=== PATIENT | female | born 1980 | race Caucasian/White ===

== ENCOUNTER 2017-11-26 09:23 | Emergency (ER) | payer MEDICAID ==
[2017-11-26] MEDS ORDERED: KETOROLAC 30 MG/1 ML SDV IVP ONE (09:38)
[2017-11-26] MEDS ORDERED: CYCLOBENZAPRINE 10 MG TAB PO ONE (09:39)
--- NOTE | 2017-11-26 09:44 | EDPHY ---
H & P Stated Complaint: abdominal cramping, frequent bowel movements for 48 hours Time Seen by Provider: 11/26/17 09:39 HPI/ROS: HPI: This is a 37-year-old female who presents with Chief Complaint: abdominal cramping, frequent bowel movements for 48 hours Location: Lower abdomen Quality: Cramping and pain Duration: 2-3 weeks Signs and Symptoms: no fever,+n nausea, no vomiting, no hematemesis, no blood in stool, no abdominal bloating, no diarrhea, no back pain, no urinary symptoms , + vaginal discharge, + vaginal spotting, no indigestion, no chest pain, no shortness of breath Timing: Acute, intermittent episodes lasting approximately 20 min at a time Severity: 7/10 at its maximum pain Context: Patient recently moved to [facility] 3 weeks ago from [place] presents with complaints of lower abdominal cramping that occurs over the last 2 -3 weeks approximately 3-4 times per day lasting 20 min at a time and self- resolving. She is having frequent bowel movements 2-3 per day but denies blood in stool/hematemesis. No recent foreign travel/antibiotic use. Patient has a history of endometriosis with Merina IUD placed in [place] approximately 4 years ago. Her last pelvic exam was 3 years ago. She has noted a change in her vaginal discharge with a new recent sexual partner. She also complains of her urine having a foul order and dark in color. Denies dyspareunia. Patient reports that she is eating more but gluten free diet. Modifying Factors: None Comment: ROS: A comprehensive 10 system review of systems is otherwise negative aside from elements mentioned in the history of present illness. MEDICAL/SURGICAL/SOCIAL HISTORY: Medical history: Endometriosis Surgical history: Denies Social history: Unemployed. Current every day smoker. Family history noncontributory. CONSTITUTIONAL: Extremely well-appearing middle-aged white female, nontoxic in appearance, awake and alert, no obvious distress HEENT: Atraumatic and normocephalic, PERRL, EOMI. Nares patent; no rhinorrhea; no nasal mucosal edema. Tympanic membranes clear. Oropharynx clear, no exudate and moist pink mucosa. Airway patent. No lymphadenopathy. No meningismus. Cardiovascular: Normal S1/S2, regular rate, regular rhythm, without murmur rub or gallop. PULMONARY/CHEST: Symmetrical and nontender. Clear to auscultation bilaterally. Good air movement. No accessory muscle usage. ABDOMEN: Soft, mildly distended, moderate suprapubic lower abdominal reproducible tenderness with deep palpation, no rebound, no guarding, no peritoneal signs, no masses or organomegaly. No CVAT. Bowel sounds heard x4 quadrants. PELVIC: normal external genitalia, normal cervix, cervical os was closed, mild cervical motion tenderness, no adnexal mass, thin foul smelling discharge, no bleeding. The exam was performed with a integrity manager. EXTREMITIES: 2/2 pulses, strength 5/5, no deformities, no clubbing, no cyanosis or edema. NEUROLOGICAL: no focal neuro deficits. GCS 15. SKIN: Warm and dry, no erythema. no rash. Good capillary refill. Source: Patient Exam Limitations: No limitations - Personal History LMP (Females 10-55): IUD In Place - Medical/Surgical History Hx Asthma: No Hx Chronic Respiratory Disease: No Hx Diabetes: No Hx Cardiac Disease: No Hx Renal Disease: No Hx Cirrhosis: No Hx Alcoholism: No Hx HIV/AIDS: No Hx Splenectomy or Spleen Trauma: No Other PMH: endometriosis - Social History Smoking Status: Current every day smoker Constitutional: Initial Vital Signs Temperature (C) 37.1 C 11/26/17 09:25 Heart Rate 94 11/26/17 09:25 Respiratory Rate 18 11/26/17 09:25 Blood Pressure 124/89 H 11/26/17 09:25 O2 Sat (%) 97 11/26/17 09:25 O2 Delivery Mode Room Air Allergies/Adverse Reactions: quetiapine [From Seroquel] Allergy (Verified 11/26/17 09:25) Home Medications: Medication Instructions Recorded Doxycycline Hyclate 100 mg PO BID #28 tablet 11/26/17 Medical Decision Making - Diagnostics Imaging Results: Imaging Impressions Abdomen X-Ray 11/26/17 09:38 Impression: No evidence for obstruction. Pelvic/Renal Ultrasound 11/26/17 09:38 Impression: 1. Uterine leiomyomata. 2. The T-shaped intrauterine device is deployed at the fundal endometrium, although the left arm may slightly extend into the medial portion of the myometrium. 3. Small bilateral ovarian follicles, with no dominant solid or cystic mass or torsion. There is a small amount of free fluid in the right adnexal region. Findings were discussed with Gely Orona PA-C at 10:58, on 11/26/2017. . ED Course/Re-evaluation: Vital signs reviewed and stable upon arrival. No systemic signs. Labs, urinalysis, vaginal swabs, pelvic ultrasound, KUB ordered Patient given IV Toradol 30 mg and p.o. Flexeril 10 mg KUB my read via PACs shows nonobstructive bowel gas pattern with stool burden in the right lower quadrant and rectal vault. IUD in place. Urinalysis shows 1+ blood and WBCs 3-5. No clear signs of infection. 1040: Labs reviewed. No signs of leukocytosis/anemia/platelet dysfunction/KWASI/ elevated LFTs/electrolyte imbalance/pancreatitis/. 1100: Called by Dr. Terry that pelvic ultrasound shows fibroids intramural and submucosal, IUD in good position, tiny follicles but no signs of ovarian torsion. Good flow to both ovaries.. Pelvic exam performed and pelvic swabs obtained showing 2+ bacteria but no yeast , no trichomonas and no clue cells Will treat for early PID with mild cervical motion tenderness and vaginal discharge with IM Rocephin 250 mg and doxycycline 100 mg twice a day times 14 days. No indication to add Metronidazole at this time. unable to provide stool sample in the ER. Referral to [facility]. This patient was seen under the supervision of my secondary supervising physician. I evaluated care for this patient independently. Discussed this patient with Dr. Acevedo. Differential Diagnosis: Abdominal pain in a female including but not limited to ovarian cyst, pelvic inflammatory disease, ovarian torsion, urinary tract infection, and appendicitis. - Data Points Laboratory Results: Laboratory Results 11/26/17 09:45 11/26/17 09:45 11/26/17 11/26/17 11/26/17 11:00 11:00 09:45 WBC RBC Hgb Hct MCV MCH MCHC RDW Plt Count MPV Neut % (Auto) Lymph % (Auto) Newton % (Auto) Eos % (Auto) Baso % (Auto) Nucleat RBC Rel Count Absolute Neuts (auto) Absolute Lymphs (auto) Absolute Monos (auto) Absolute Eos (auto) Absolute Basos (auto) Absolute Nucleated RBC Immature Gran % Immature Gran # Sodium Potassium Chloride Carbon Dioxide Anion Gap BUN Creatinine Estimated GFR Glucose Calcium Total Bilirubin Conjugated Bilirubin Unconjugated Bilirubin AST ALT Alkaline Phosphatase Total Protein Albumin Lipase Beta HCG, Qual Urine Color YELLOW Urine Appearance HAZY Urine pH 6.0 (5.0-7.5) Ur Specific Flasher 1.019 (1.002-1.030) Urine Protein NEGATIVE (NEGATIVE) Urine Ketones NEGATIVE (NEGATIVE) Urine Blood 1+ H (NEGATIVE) Urine Nitrate NEGATIVE (NEGATIVE) Urine Bilirubin NEGATIVE (NEGATIVE) Urine Urobilinogen NEGATIVE EU EU (0.2-1.0) Ur Leukocyte Esterase NEGATIVE (NEGATIVE) Urine RBC 1-3 /hpf /hpf (0-3) Urine WBC 3-5 /hpf H /hpf (0-3) Ur Epithelial Cells TRACE /lpf /lpf (NONE-1+) Urine Mucus TRACE /lpf /lpf (NONE-1+) Urine Glucose NEGATIVE (NEGATIVE) Trichomonas (Wet Prep) NO YEAST Josette species DNA Pending C.trachomatis RNA (TMA) Pending Gardnerella DNA Probe Pending N.gonorrhoeae RNA (TMA) Pending Trichomonas DNA Probe Pending 11/26/17 11/26/17 11/26/17 09:45 09:45 09:45 WBC 8.34 10^3/uL 10^3/uL (3.80-9.50) RBC 5.34 10^6/uL H 10^6/uL (4.18-5.33) Hgb 16.9 g/dL H g/dL (12.6-16.3) Hct 50.0 % H % (38.0-47.0) MCV 93.6 fL fL (81.5-99.8) MCH 31.6 pg pg (27.9-34.1) MCHC 33.8 g/dL g/dL (32.4-36.7) RDW 11.8 % % (11.5-15.2) Plt Count 285 10^3/uL 10^3/uL (150-400) MPV 9.4 fL fL (8.7-11.7) Neut % (Auto) 70.2 % % (39.3-74.2) Lymph % (Auto) 22.8 % % (15.0-45.0) Newton % (Auto) 5.4 % % (4.5-13.0) Eos % (Auto) 0.7 % % (0.6-7.6) Baso % (Auto) 0.8 % % (0.3-1.7) Nucleat RBC Rel Count 0.0 % % (0.0-0.2) Absolute Neuts (auto) 5.85 10^3/uL 10^3/uL (1.70-6.50) Absolute Lymphs (auto) 1.90 10^3/uL 10^3/uL (1.00-3.00) Absolute Monos (auto) 0.45 10^3/uL 10^3/uL (0.30-0.80) Absolute Eos (auto) 0.06 10^3/uL 10^3/uL (0.03-0.40) Absolute Basos (auto) 0.07 10^3/uL 10^3/uL (0.02-0.10) Absolute Nucleated RBC 0.00 10^3/uL 10^3/uL (0-0.01) Immature Gran % 0.1 % % (0.0-1.1) Immature Gran # 0.01 10^3/uL 10^3/uL (0.00-0.10) Sodium 140 mEq/L mEq/L (135-145) Potassium 3.9 mEq/L mEq/L (3.3-5.0) Chloride 103 mEq/L mEq/L (97-110) Carbon Dioxide 28 mEq/l mEq/l (22-31) Anion Gap 9 mEq/L mEq/L (8-16) BUN 12 mg/dL mg/dL (7-23) Creatinine 0.7 mg/dL mg/dL (0.6-1.0) Estimated GFR > 60 Glucose 92 mg/dL mg/dL (70-100) Calcium 9.3 mg/dL mg/dL (8.5-10.4) Total Bilirubin 0.4 mg/dL mg/dL (0.1-1.4) Conjugated Bilirubin 0.1 mg/dL mg/dL (0.0-0.5) Unconjugated Bilirubin 0.3 mg/dL mg/dL (0.0-1.1) AST 23 IU/L IU/L (14-46) ALT 41 IU/L IU/L (9-52) Alkaline Phosphatase 66 IU/L IU/L (38-126) Total Protein 6.4 g/dL g/dL (6.3-8.2) Albumin 3.8 g/dL g/dL (3.5-5.0) Lipase 72 IU/L IU/L (23-300) Beta HCG, Qual NEGATIVE Urine Color Urine Appearance Urine pH Ur Specific Flasher Urine Protein Urine Ketones Urine Blood Urine Nitrate Urine Bilirubin Urine Urobilinogen Ur Leukocyte Esterase Urine RBC Urine WBC Ur Epithelial Cells Urine Mucus Urine Glucose Trichomonas (Wet Prep) Josette species DNA C.trachomatis RNA (TMA) Gardnerella DNA Probe N.gonorrhoeae RNA (TMA) Trichomonas DNA Probe Medications Given: Discontinued Medications Ceftriaxone Sodium (Rocephin Im Syringe) 250 mg IM EDNOW ONE PRN Reason: Protocol Stop: 11/26/17 11:39 Last Admin: 11/26/17 12:35 Dose: 250 mg Cyclobenzaprine HCl (Flexeril) 10 mg PO EDNOW ONE Stop: 11/26/17 09:40 Last Admin: 11/26/17 09:54 Dose: 10 mg Doxycycline Hyclate (Doxycycline Hyclate) 100 mg PO EDNOW ONE PRN Reason: Protocol Stop: 11/26/17 11:39 Last Admin: 11/26/17 12:20 Dose: 100 mg Ketorolac Tromethamine (Toradol) 30 mg IVP EDNOW ONE Stop: 11/26/17 09:39 Last Admin: 11/26/17 09:55 Dose: 30 mg Departure - Departure Disposition: Home, Routine, Self-Care Clinical Impression: Bacterial vaginal infection Fibroids Qualifiers: Uterine leiomyoma location: intramural and submucous Qualified Code(s): D25.1 - Intramural leiomyoma of uterus Condition: Good Instructions: Bacterial Vaginosis (ED), Endometritis (ED), Pelvic Rest (ED) Additional Instructions: Consume a minimum of 8-10 glasses of water or electrolyte fluid replacement drinks that include Gatorade, Powerade, Pedialyte. Eat a bland diet for the next 48 hours and then slowly advance as tolerated. Keep a food log and monitor correlation between food choices and GI distress. Observe pelvic rest for the next 14 days. Take doxycycline twice a day times 14 days. Do not take a bath or perform douching x 2 weeks. Establish care at the [facility]. Return to the Emergency Room if symptoms do not resolve in the next 48-72 hours , you spike a fever > 102 F, or experience intractable abdominal pain/nausea/ vomiting. Referrals: [facility],. [Clinic] - As per Instructions Stand Alone Forms: Work Excuse Prescriptions: Doxycycline Hyclate 100 mg PO BID #28 tablet
[2017-11-26 10:11] LABS: PLATELET COUNT 285 10^3/uL (150-400)
[2017-11-26] MEDS ORDERED: DOXYCYCLINE HYCLATE 100 MG CAP/TAB PO ONE (11:38)
[2017-11-26 12:38] VITALS: BP 115/88
[2017-11-27 10:47] LABS: GC AMPLIFICATION GENPROBE NEGATIVE (NEGATIVE)
== END 2017-11-26 12:38 | disposition home or self-care (01) ==
DX: N76.0 Acute vaginitis (principal); Z97.5 Presence of (intrauterine) contraceptive device; F17.210 Nicotine dependence, cigarettes, uncomplicated
CPT/HCPCS: 96374; J0696; J1885

== ENCOUNTER 2018-02-20 09:13 | Emergency (ER) | payer MEDICAID ==
[2018-02-20] MEDS ORDERED: ACETAMINOPHEN 500 MG TAB PO ONE (09:21)
[2018-02-20] MEDS ORDERED: IBUPROFEN 800 MG TAB PO ONE (09:21)
--- NOTE | 2018-02-20 09:29 | EDPHY ---
H & P Time Seen by Provider: 02/20/18 09:13 HPI/ROS: HPI Cough, sore throat, muscle aches. 37-year-old female by private vehicle. This patient reports that about 3 days ago she developed a mild cough and congestion. This was followed over the last 2 days by sore throat, worsening cough with associated shortness of breath, muscle aches and joint aches, subjective fevers and continued nasal congestion and rhinorrhea. She also reports a gradual onset, intermittent dull frontal headache. ROS: Constitutional: As above. No weakness. Eyes: No discharge. No changes in vision. ENT: As above. Respiratory: As. Cardiac: No chest pain, no palpitations. Gastrointestinal: No abdominal pain, no vomiting, no diarrhea. Genitourinary: No hematuria. No dysuria or increased frequency with urination. Musculoskeletal: No back pain. No neck pain. As above. Skin: No rashes. Neurological: As above. No focal weakness or altered sensation. Past medical history: Endometriosis. Social history: Smoker. Here by herself. No alcohol. Physical Exam: General Appearance: This is a pleasant well-appearing 37-year-old female. Alert, she is not in any distress. This patient is responding to questions appropriately and in full sentences. This patient appears well-hydrated and well-nourished. Eyes: Pupils equal and round no pallor or injection. No lid edema, erythema or injection. ENT, Mouth: Mucous membranes are moist. The pharyngeal tissues are unremarkable. No edema or swelling. No asymmetry suggestive of abscess. No erythema or exudates. No stridor on auscultation of her neck. No voice changes. Scant upper anterior cervical lymphadenopathy bilaterally. No submental or submandibular lymphadenopathy. Respiratory: There are no retractions, lungs are clear to auscultation with good air movement bilaterally. No tachypnea. Intermittent nonproductive cough. Cardiovascular: Regular rate and rhythm. No murmur. Neurological: Motor sensory function is grossly intact. Cranial nerves are normal. Gait is normal. Skin: Warm and dry, no rashes. Musculoskeletal: Neck is supple and nontender. No pain on flexion of her neck. Extremities are symmetrical. All joints range without pain or impingement. Psychiatric: No agitation. No depression. Database: Influenza A-positive. EKG: Imaging: Chest x-ray PA and lateral; the cardiac mediastinal silhouette is unremarkable. No evidence of infiltrate or pneumothorax. No acute cardiopulmonary disease process noted. Interpreted by me. Procedures: Emergency department course: Triage vital signs reviewed. She is mildly tachycardic at 1:06 a.m.. Vital signs are otherwise normal. She is afebrile at 37 degrees C. She will be given 800 mg of ibuprofen and a g of Tylenol. Chest x-ray to be obtained. The patient is positive for influenza A. 9:50 a.m., the patient was re-evaluated. She is resting comfortably at this time. Results of her chest x-ray and positive influenza assay discussed with her. Her symptoms really progressed about 2 days ago. I will prescribe her Tamiflu. She otherwise looks well. I feel she is safe for discharge and she feels comfortable going home. Follow-up and return to emergency department precautions have been reviewed with her. Supportive care discussed. All of her questions were answered. She was discharged from the emergency department in good condition. Differential Diagnosis: The differential diagnosis on this patient includes but is not limited to influenza, viral syndrome, bronchitis. Pneumonia, serious bacterial infection unlikely. This represents a partial list of diagnoses considered. These considerations are based on history, physical exam, past history, reassessment and diagnostic testing. Smoking Status: Current every day smoker Constitutional: Initial Vital Signs Temperature (C) 37 C 02/20/18 09:21 Heart Rate 106 H 02/20/18 09:21 Respiratory Rate 20 02/20/18 09:21 Blood Pressure 122/90 H 02/20/18 09:21 O2 Sat (%) 96 02/20/18 09:21 O2 Delivery Mode Room Air Allergies/Adverse Reactions: quetiapine [From Seroquel] Allergy (Verified 11/26/17 09:25) Home Medications: Medication Instructions Recorded Benzonatate [Tessalon Pearles] 100 mg PO TID #12 cap 02/20/18 Oseltamivir Phosphate [Tamiflu 75 75 mg PO BID #10 cap 02/20/18 mg (RX)] Medical Decision Making - Data Points Medications Given: Discontinued Medications Acetaminophen (Tylenol) 1,000 mg PO EDNOW ONE Stop: 02/20/18 09:22 Last Admin: 02/20/18 09:29 Dose: 1,000 mg Ibuprofen (Motrin) 800 mg PO EDNOW ONE Stop: 02/20/18 09:22 Last Admin: 02/20/18 09:29 Dose: 800 mg Departure - Departure Disposition: Home, Routine, Self-Care Clinical Impression: Influenza A Condition: Good Instructions: Influenza (ED) Additional Instructions: Read and follow provided instructions. Follow-up with your primary care physician in on Friday for re-evaluation. Keep yourself well hydrated. Drink plenty of fluids. Ibuprofen dosin mg every 6 hours with meals for the next 3 days only for muscle and joint aches. Take only as needed for pain. Take Tylenol as well as directed for fever control. Take medication as prescribed. Return to the emergency department for worsening symptoms, difficulty breathing or other serious concerns. Referrals: NONE *PRIMARY CARE P,. [Primary Care Provider] - As per Instructions Prescriptions: Benzonatate [Tessalon Pearles] 100 mg PO TID #12 cap Oseltamivir Phosphate [Tamiflu 75 mg (RX)] 75 mg PO BID #10 cap
[2018-02-20 10:04] VITALS: BP 145/66
== END 2018-02-20 10:03 | disposition home or self-care (01) ==
LOC: CED 09:13
DX: J10.1 Influenza due to other identified influenza virus with other respiratory manifestations (principal); F17.200 Nicotine dependence, unspecified, uncomplicated
CPT/HCPCS: 71046-PO

== ENCOUNTER 2018-08-16 19:48 | Emergency (ER) | payer OTHER, MEDICAID | END 2018-08-16 21:52 | disposition still patient (30) | LOC: CED 19:48 ==